=== PATIENT | female | born 1990 | race African-American/Black ===

== ENCOUNTER 2021-05-20 16:45 | Inpatient (IN) | payer BC ==
[2021-05-20 17:58] VITALS: BMI 34.9
[2021-05-20] MEDS ORDERED: DINOPROSTONE 10 MG VAGINAL SUPPOSITORY VG ONE (19:31)
[2021-05-20 19:38] LABS: INR 0.91 (0.83-1.09); PROTHROMBIN TIME (PATIENT) 10.4 SEC (9.7-13.0)
[2021-05-20 19:40] LABS: ACTIVATED PTT 23.4 SECONDS (25.2-36.5)
[2021-05-20] MEDS: DEXTROSE 5%-WATER - 1,000 ML IV SCH (21:45)
[2021-05-21] MEDS: DEXTROSE 5%-WATER - 1,000 ML IV SCH ×3 (03:30→22:11)
[2021-05-21] MEDS ORDERED: OXYTOCIN 30 UNITS in 0.9% NS 30 UNIT/500 ML INFUS.BAG IVPB SCH (09:15)
[2021-05-21] MEDS ORDERED: OXYTOCIN 30 UNITS in 0.9% NS 30 UNIT/500 ML INFUS.BAG IVPB ONE (09:22)
[2021-05-21] MEDS ORDERED: PROMETHAZINE HCL 25 MG/1 ML VIAL ONE (15:55)
[2021-05-21] MEDS ORDERED: BUTORPHANOL TARTRATE 2 MG/ML VIAL ONE (15:55)
[2021-05-21] MEDS ORDERED: PROMETHAZINE HCL 25 MG/1 ML VIAL IVPB ONE (15:58)
[2021-05-21] MEDS ORDERED: BUTORPHANOL TARTRATE 2 MG/ML VIAL IVPB ONE (15:58)
[2021-05-21] MEDS ORDERED: LIDOCAINE HCL 1% PRESERVATIVE FREE - 30ML VIAL ONE (19:02)
[2021-05-21] MEDS ORDERED: OXYTOCIN 20 UNITS in 0.9% NS 20 UNIT/1,000 ML INFUS.BAG IV ONE (19:02)
[2021-05-21] MEDS ORDERED: BENZOCAINE 28 GM HEMORRHOIDAL OINTMENT TP PRN (21:57)
[2021-05-21] MEDS ORDERED: BENZOCAINE 20% 57 GM BOTTLE TP PRN (21:57)
[2021-05-21] MEDS ORDERED: ACETAMINOPHEN 325 MG TABLET (FP) PO PRN (21:57)
[2021-05-21] MEDS ORDERED: WITCH HAZEL 50% (TUCKS) 40 PAD/JAR PAD TP PRN (21:57)
[2021-05-21] MEDS ORDERED: IBUPROFEN 600 MG TABLET (FP) PO PRN (21:57)
[2021-05-21] MEDS ORDERED: OXYTOCIN 20 UNITS in 0.9% NS 20 UNIT/1,000 ML INFUS.BAG IV SCH (22:00)
[2021-05-21 22:09] LABS: CORD HCO3 20.3 mmHg (20-29); CORD PCO2 47.2 mmHg (30-78); CORD pH 7.251 (7.14-7.44)
[2021-05-22 08:17] LABS: BASO % 0.2 % (0-2.0); HEMATOCRIT 30.1 % (32.4-45.2); HEMOGLOBIN 9.5 GM/dL (10.7-15.3); LYMPH % 9.6 % (8-40); MCH 24.4 pg (25.7-33.7); MCHC 31.6 g/dl (32.0-36.0); MEAN CELL VOLUME 77.3 fl (80-96); MEAN PLT VOLUME 8.2 fl (7.5-11.1); MONO % 5.9 % (3.8-10.2); NEUT % 84.3 % (42.8-82.8); PLATELET COUNT 316 10^3/uL (134-434); RDW 15.7 % (11.6-15.6); WHITE BLOOD COUNT 15.4 K/mm3 (4.0-10.0)
[2021-05-22] MEDS ORDERED: FLU VACC QS2021-22(6MOS UP)/PF 60 MCG/0.5 ML SYRINGE IM ONE (10:00)
[2021-05-22] MEDS ORDERED: SENNOSIDES/DOCUSATE COMBO (SENNA PLUS) TABLET (UD) PO PRN (22:00)
[2021-05-23 08:23] VITALS: BP 118/64; PULSE 72; TEMP 98.3
== END 2021-05-23 12:00 | disposition home or self-care (01) | DRG 807 ==
LOC: JLDR 16:45 → J3W 05-21 23:24
PROVIDERS: ADMIT Obstetrics & Gynecology Maternal & Fetal Medicine; ATTEND Obstetrics & Gynecology Maternal & Fetal Medicine
PROC: 10E0XZZ Delivery of Products of Conception, External Approach (ICD-10-PCS; principal; 2021-05-21)
DX: O80 Encounter for full-term uncomplicated delivery (principal); Z3A.39 39 weeks gestation of pregnancy; Z37.0 Single live birth
CPT/HCPCS: 36415; 36600; 59409; 82803; 85025; 85610; 85730; 86780; 88307-TC; 90686; G0008